=== PATIENT | male | born 1970 | race Caucasian/White ===

== ENCOUNTER → 2017-07-20 | Outpatient (CLI) | payer OTHER | LOC: M RAD 12:43 | DX: J32.4 Chronic pansinusitis (principal) | CPT/HCPCS: 70486 ==

== ENCOUNTER 2017-08-31 09:03 | Day surgery (SDC) | payer OTHER ==
[2017-08-31] MEDS ORDERED: LIDOCAINE 1% MDV 20ML VIAL SQ ×2 (09:15)
[2017-08-31] MEDS ORDERED: LR 1,000 ML IV ×4 (09:15→15:30)
[2017-08-31] MEDS: OXYMETAZOLINE NASAL SPRAY (AFRIN) As Ordered ×4 (13:36→14:26)
[2017-08-31] MEDS: LIDOCAINE W/EPINEPHRINE 1% 20ML VIAL As Ordered ×2 (13:36)
[2017-08-31] MEDS: METHYLENE BLUE 0.5% (5MG/ML) 10 ML AMP (PROVAYBLUE)(Q9968 PER 1MG) As Ordered ×2 (13:36)
[2017-08-31] MEDS ORDERED: dexameTHASONE 4 MG/ML 1ML VIAL (J1100) As Ordered ×2 (14:47)
[2017-08-31] MEDS ORDERED: fentaNYL 250 MCG/5 ML INJECTION (J3010) As Ordered ×2 (14:47)
[2017-08-31] MEDS ORDERED: PROPOFOL 200 MG/20 ML VIAL As Ordered ×2 (14:47)
[2017-08-31] MEDS ORDERED: ONDANSETRON 4MG/2ML VIAL (J2405) As Ordered ×2 (14:47)
[2017-08-31] MEDS ORDERED: MIDAZOLAM INJ 2 MG/2 ML VIAL (J2250) As Ordered ×2 (14:47)
[2017-08-31] MEDS ORDERED: LIDOCAINE 2% INJ 100 MG/5 ML SDV (FOR ANES.) As Ordered ×2 (14:47)
[2017-08-31] MEDS ORDERED: NEOSTIGMINE 10 MG/10 ML VIAL (J2710) As Ordered ×2 (14:47)
[2017-08-31] MEDS ORDERED: ROCURONIUM BROMIDE 50 MG/5 ML VIAL As Ordered ×2 (14:47)
[2017-08-31] MEDS ORDERED: GLYCOPYRROLATE INJ 0.2 MG/ML 2 ML VIAL As Ordered ×2 (14:47)
[2017-08-31] MEDS: SODIUM CHLORIDE 0.9% NASAL GEL 15MG (AYR) As Ordered ×2 (14:51)
[2017-08-31] MEDS ORDERED: HYDROmorphone HCL 1 MG/ML SYRINGE (J1170) As Ordered ×2 (15:24)
[2017-08-31] MEDS: HYDROmorphone HCL 1 MG/ML SYRINGE (J1170) IV ×10 (15:27→15:47)
[2017-08-31] MEDS ORDERED: ONDANSETRON 4MG/2ML VIAL (J2405) IV ×2 (15:30)
[2017-08-31] MEDS ORDERED: ACETAMINOPH W/CODEINE #3 TAB UD PO ×2 (15:30)
[2017-08-31] MEDS: PERCOCET 5MG/325MG TAB PO ×4 (16:10→17:07)
[2017-08-31] MEDS: fentaNYL 100 MCG/2 ML INJECTION (J3010) IV ×6 (16:17→16:27)
[2017-08-31] MEDS ORDERED: fentaNYL 100 MCG/2 ML INJECTION (J3010) As Ordered ×2 (16:17)
[2017-08-31] MEDS ORDERED: PERCOCET 5MG/325MG TAB As Ordered ×2 (17:04)
== END 2017-08-31 18:00 | disposition home or self-care (01) ==
LOC: M SDC 09:03
DX: J34.2 Deviated nasal septum (principal); J34.3 Hypertrophy of nasal turbinates; J32.2 Chronic ethmoidal sinusitis; J32.1 Chronic frontal sinusitis; J32.0 Chronic maxillary sinusitis
CPT/HCPCS: 30520